=== PATIENT | female | born 1975 | race Caucasian/White ===

== ENCOUNTER 2020-09-04 20:53 | Inpatient (IN) | payer OTHER ==
[~2020-09-04] VITALS: Ht 165.1 cm; Wt 69.4 kg
[2020-09-04] MEDS ORDERED: PANTOPRAZOLE 40 MG/10 ML VIAL INJ IV ONE (21:15)
[2020-09-04] MEDS ORDERED: MORPHINE SULFATE 4 MG/ML SYR/VIAL IV ONE (21:15)
[2020-09-04] MEDS ORDERED: PROCHLORPERAZINE EDISYLATE 5 MG/ML 2ML VIAL IV ONE (21:15)
[2020-09-04] MEDS ORDERED: SODIUM CHLORIDE 0.9% 1,000 ML IVB ONE (21:15)
[2020-09-04 21:56] LABS: Basophils % (auto) 0.4 % (0.0-2.0); Eosinophils # (auto) 0 10 ^3/uL (0-0.8); Monocytes # (auto) 0.9 10 ^3/uL (0-1.3); Neutrophils # (auto) 10.5 10 ^3/uL (1.6-8.6); Nucleated Red Blood Cells % 0.1 %
[2020-09-04 21:58] LABS: Basophils # (auto) 0.1 10 ^3/uL (0-0.2); Hematocrit 47.8 % (36.0-46.0); Lymphocytes # (auto) 0.6 10 ^3/uL (0.4-5.4); Lymphocytes % (auto) 4.8 % (10.0-50.0); Mean Corpuscular Hemoglobin 35.3 pg (28.0-32.0); Mean Corpuscular Hgb Conc. 33.5 g/dL (32.0-36.0); Mean Corpuscular Volume 105.5 fL (80.0-100.0); Monocytes % (auto) 7.4 % (0.0-12.0); Neutrophils % (auto) 87.4 % (37.0-80.0); Red Blood Cells 4.53 10^6/uL (4.0-5.20); Red Cell Distribution Width 14.7 % (11.8-14.3)
[2020-09-04 22:01] LABS: Urine Bacteria NONE SEEN /hpf (None Seen); Urine Blood TRACE /uL (Negative); Urine Hyaline Cast MANY /lpf (0 - 2); Urine Mucus FEW (None Seen); Urine WBC <1 /hpf (0 - 5)
[2020-09-04 22:13] LABS: Albumin 4.6 g/dL (3.4-5.0); Potassium 4.2 mmol/L (3.5-5.1)
[2020-09-04 22:16] LABS: Lactic Acid w/Reflex 7.4 mmol/L (0.4-2.0)
[2020-09-04 22:21] LABS: Total Protein 9.2 g/dL (6.4-8.2)
[2020-09-04 22:22] LABS: BUN/Creatinine Ratio 10.9
[2020-09-04] MEDS ORDERED: SODIUM CHLORIDE 0.9% 1,000 ML IV ONE (22:30)
[2020-09-05] MEDS ORDERED: fentaNYL CITRATE 100 MCG/2 ML VL IV ONE (01:30)
[2020-09-05] MEDS ORDERED: metroNIDAZOLE 500MG/100ML 100 ML IV ONE (01:30)
[2020-09-05] MEDS ORDERED: MORPHINE SULF INJ 2 MG/ML SYRINGE 1ML IV PRN (01:30)
[2020-09-05] MEDS ORDERED: MORPHINE SULFATE 4 MG/ML SYR/VIAL IV PRN (01:30)
[2020-09-05] MEDS ORDERED: NITROGLYCERIN 0.4 MG SL TAB SL PRN (01:30)
[2020-09-05] MEDS: SODIUM CHLORIDE 0.9% 1,000 ML IV SCH ×3 (01:55→21:19)
[2020-09-05] MEDS: cefTRIAXone 1GM/50ML D5W 50 ML IV SCH (01:55)
[2020-09-05] MEDS: ONDANSETRON HCL 4 MG/2 ML VIAL IV PRN ×4 (02:27→21:21)
[2020-09-05 02:56] LABS: Albumin 3.5 g/dL (3.4-5.0); BUN/Creatinine Ratio 14.1; Calcium 6.6 mg/dL (8.5-10.1); Potassium 3.8 mmol/L (3.5-5.1)
[2020-09-05 02:58] LABS: Bilirubin, Total 0.7 mg/dL (0.2-1.0); Total Protein 6.9 g/dL (6.4-8.2)
[2020-09-05] MEDS ORDERED: ZOLP10TA PO (06:43)
[2020-09-05] MEDS ORDERED: HYDR-4798 PO (06:43)
[2020-09-05] MEDS ORDERED: LINA1CAP2 PO (06:43)
[2020-09-05] MEDS ORDERED: CYCL10TA6 PO (06:43)
[2020-09-05] MEDS ORDERED: FAMO20TA10 PO (06:43)
[2020-09-05] MEDS ORDERED: OMEP20TA PO (06:43)
[2020-09-05] MEDS ORDERED: DICY10CA PO (06:43)
[2020-09-05] MEDS ORDERED: PROP60CA34 PO (06:43)
[2020-09-05] MEDS ORDERED: ONDA-144 PO (06:43)
[2020-09-05] MEDS ORDERED: RIZA10TA12 PO (06:43)
[2020-09-05] MEDS ORDERED: BUTACC PO (06:43)
[2020-09-05] MEDS ORDERED: PREG50CA PO (06:43)
[2020-09-05 08:30] VITALS: BP 117/74
[2020-09-05] MEDS ORDERED: ACETAMINOPHEN 325 MG TAB PO PRN ×3 (08:45→20:15)
[2020-09-05 09:00] VITALS: BP 117/74
[2020-09-05] MEDS: metroNIDAZOLE 500MG/100ML 100 ML IV SCH ×2 (09:17→17:30)
[2020-09-05] MEDS ORDERED: PANTOPRAZOLE 40 MG/10 ML VIAL INJ IV SCH (10:00)
[2020-09-05] MEDS ORDERED: SCOP1DIS9 TOP (11:14)
[2020-09-05] MEDS ORDERED: CRAN200C PO (11:14)
[2020-09-05] MEDS ORDERED: MULTCAP45 PO (11:14)
[2020-09-05] MEDS ORDERED: POLY33504 PO (11:14)
[2020-09-05] MEDS ORDERED: METH750T22 PO (11:14)
[2020-09-05 12:22] VITALS: BP 103/63
[2020-09-05] MEDS ORDERED: HYDROmorphone HCL 2 MG/ML VL IV ONE (13:15)
[2020-09-05] MEDS ORDERED: RIZA5TAB35 PO (15:37)
[2020-09-05] MEDS ORDERED: ONDA-180 PO (15:38)
[2020-09-05] MEDS ORDERED: OMEP-263 PO (15:40)
[2020-09-05] MEDS ORDERED: diphenhdrAMINE HCL 50 MG/1 ML VL IV ONE (16:30)
[2020-09-05] MEDS ORDERED: diphenhdrAMINE HCL 50 MG/1 ML VL IM ONE (16:30)
[2020-09-05] MEDS: SUCRALFATE 1 GM/10 ML ORAL SUSP GT SCH ×2 (16:40→21:19)
[2020-09-05 17:08] VITALS: BP 112/86
[2020-09-05] MEDS ORDERED: HYDROcodone-ACET 10/325MG TAB PO PRN (17:15)
[2020-09-05] MEDS: diphenhdrAMINE HCL 50 MG/1 ML VL IV PRN (21:20)
[2020-09-05] MEDS: PANTOPRAZOLE 40 MG/10 ML VIAL INJ IV SCH (21:20)
[2020-09-05] MEDS: HYDROmorphone HCL 2 MG/ML VL IV PRN (21:21)
[2020-09-05 22:23] VITALS: BP 124/93
[2020-09-06] MEDS: metroNIDAZOLE 500MG/100ML 100 ML IV SCH ×3 (01:37→18:43)
[2020-09-06] MEDS: HYDROmorphone HCL 2 MG/ML VL IV PRN ×5 (01:38→23:14)
[2020-09-06] MEDS: ONDANSETRON HCL 4 MG/2 ML VIAL IV PRN ×6 (01:39→22:52)
[2020-09-06] MEDS: diphenhdrAMINE HCL 50 MG/1 ML VL IV PRN ×4 (04:49→23:15)
[2020-09-06 05:30] VITALS: BP 133/87
[2020-09-06] MEDS: SUCRALFATE 1 GM/10 ML ORAL SUSP GT SCH ×4 (05:58→21:28)
[2020-09-06 06:23] LABS: Eosinophils # (auto) 0 10 ^3/uL (0-0.8); Eosinophils % (auto) 0.6 % (0.0-7.0); Lymphocytes # (auto) 1.1 10 ^3/uL (0.4-5.4); Monocytes # (auto) 0.5 10 ^3/uL (0-1.3); Red Blood Cells 3.23 10^6/uL (4.0-5.20); White Blood Cell 5.5 10^3/uL (4.4-10.8)
[2020-09-06 06:25] LABS: Basophils # (auto) 0 10 ^3/uL (0-0.2); Basophils % (auto) 0.7 % (0.0-2.0); Hemoglobin 11.5 g/dL (12.2-16.2); Lymphocytes % (auto) 19.9 % (10.0-50.0); Mean Corpuscular Hemoglobin 35.7 pg (28.0-32.0); Mean Corpuscular Hgb Conc. 34.9 g/dL (32.0-36.0); Mean Corpuscular Volume 102.4 fL (80.0-100.0); Monocytes % (auto) 8.8 % (0.0-12.0); Neutrophils # (auto) 3.8 10 ^3/uL (1.6-8.6); Nucleated Red Blood Cells % 0.1 %; Red Cell Distribution Width 14.8 % (11.8-14.3)
[2020-09-06 07:24] LABS: BUN/Creatinine Ratio 12.2; Bilirubin, Total 0.6 mg/dL (0.2-1.0); Calcium 6.7 mg/dL (8.5-10.1); Total Protein 6.2 g/dL (6.4-8.2)
[2020-09-06 08:08] LABS: Potassium 2.8 mmol/L (3.5-5.1)
[2020-09-06 09:00] VITALS: BP 124/89
[2020-09-06] MEDS ORDERED: POTASSIUM CHL 20 Meq TABLET PO ONE (09:45)
[2020-09-06] MEDS ORDERED: SODIUM BICARBONATE 50ML VIAL 150 ML in D5W 5% 1,000 ML IV ONE (09:45)
[2020-09-06] MEDS ORDERED: POTASSIUM CHLORIDE 60 MEQ, LIDOCAINE 1% (LOCAL ANESTH.) 6 ML in SODIUM CHL 0.9% 500 ML IV ONE (09:45)
[2020-09-06] MEDS: cefTRIAXone 1GM/50ML D5W 50 ML IV SCH (09:56)
[2020-09-06] MEDS: PANTOPRAZOLE 40 MG/10 ML VIAL INJ IV SCH ×2 (09:58→21:28)
[2020-09-06 13:00] VITALS: BP 123/96
[2020-09-06 14:31] LABS: Hepatitis A Ab IgM Negative; Hepatitis B Surface Antigen Negative (Negative); Hepatitis C Antibody Negative (Negative)
[2020-09-06 14:37] LABS: Hepatitis B Core IgM Positive
[2020-09-06 17:34] VITALS: BP 138/94
[2020-09-06 19:03] LABS: BUN/Creatinine Ratio 6.5; Calcium 6.9 mg/dL (8.5-10.1); Potassium 3.2 mmol/L (3.5-5.1)
[2020-09-06 22:00] VITALS: BP 124/87
[2020-09-07] MEDS: metroNIDAZOLE 500MG/100ML 100 ML IV SCH ×3 (02:40→17:45)
[2020-09-07] MEDS: ONDANSETRON HCL 4 MG/2 ML VIAL IV PRN ×4 (04:33→20:43)
[2020-09-07 05:00] VITALS: BP 121/86
[2020-09-07] MEDS: diphenhdrAMINE HCL 50 MG/1 ML VL IV PRN ×4 (05:17→22:58)
[2020-09-07] MEDS: HYDROmorphone HCL 2 MG/ML VL IV PRN ×4 (05:18→22:58)
[2020-09-07] MEDS: SUCRALFATE 1 GM/10 ML ORAL SUSP GT SCH ×4 (06:10→21:45)
[2020-09-07 07:24] LABS: Albumin 3.7 g/dL (3.4-5.0); Calcium 6.9 mg/dL (8.5-10.1); Potassium 3.4 mmol/L (3.5-5.1)
[2020-09-07 07:29] LABS: BUN/Creatinine Ratio 3.8; Bilirubin, Total 0.8 mg/dL (0.2-1.0); Total Protein 7.5 g/dL (6.4-8.2)
[2020-09-07] MEDS: cefTRIAXone 1GM/50ML D5W 50 ML IV SCH (08:50)
[2020-09-07 09:00] VITALS: BP 137/90
[2020-09-07] MEDS: PANTOPRAZOLE 40 MG/10 ML VIAL INJ IV SCH ×2 (09:17→21:45)
[2020-09-07] MEDS ORDERED: D5W/SOD CHL 0.9%/KCL 40MEQ 1,000 ML IV ONE (10:00)
[2020-09-07 12:10] LABS: BUN/Creatinine Ratio 6.3
[2020-09-07 12:16] LABS: Potassium 2.8 mmol/L (3.5-5.1)
[2020-09-07] MEDS ORDERED: POTASSIUM EFFERVESENT TAB 25 MEQ PO ONE (12:30)
[2020-09-07] MEDS ORDERED: D5W/SOD CHLO 0.9% 1,000 ML IV SCH ×2 (12:30→22:00)
[2020-09-07] MEDS ORDERED: POTASSIUM CHLORIDE 40 MEQ, LIDOCAINE 1% (LOCAL ANESTH.) 4 ML in SODIUM CHL 0.9% 250 ML IV ONE (12:30)
[2020-09-07 13:00] VITALS: BP 128/96
[2020-09-07 17:00] VITALS: BP 148/94
[2020-09-07] MEDS ORDERED: MAGNESIUM SULFATE 1GM/100ML 100 ML IV ONE (19:00)
[2020-09-07] MEDS ORDERED: SODIUM PHOSPHATES 40 MEQ in D5W 5% 250 ML IV ONE (19:00)
[2020-09-07] MEDS ORDERED: CALCIUM CHL 100MG/ML 1,000 MG in D5W 5% 100 ML IV ONE (19:00)
[2020-09-07] MEDS ORDERED: D5W/SOD CHLO 0.9% 1,000 ML IV ONE (21:00)
[2020-09-07 22:00] VITALS: BP 124/87
[2020-09-08] MEDS: metroNIDAZOLE 500MG/100ML 100 ML IV SCH ×3 (01:55→18:02)
[2020-09-08] MEDS: ONDANSETRON HCL 4 MG/2 ML VIAL IV PRN ×5 (02:06→20:22)
[2020-09-08 05:00] VITALS: BP 136/94
[2020-09-08] MEDS ORDERED: D5W/SOD CHLO 0.9% 1,000 ML IV SCH (05:30)
[2020-09-08] MEDS: HYDROmorphone HCL 2 MG/ML VL IV PRN ×4 (06:04→20:21)
[2020-09-08] MEDS: diphenhdrAMINE HCL 50 MG/1 ML VL IV PRN ×3 (06:04→20:22)
[2020-09-08] MEDS: SUCRALFATE 1 GM/10 ML ORAL SUSP GT SCH ×4 (06:26→21:59)
[2020-09-08 06:49] LABS: Albumin 3.2 g/dL (3.4-5.0); Calcium 7.2 mg/dL (8.5-10.1)
[2020-09-08 06:57] LABS: BUN/Creatinine Ratio 5.1; Bilirubin, Total 0.6 mg/dL (0.2-1.0); Total Protein 6.5 g/dL (6.4-8.2)
[2020-09-08 07:46] LABS: Potassium 2.8 mmol/L (3.5-5.1)
[2020-09-08] MEDS: PANTOPRAZOLE 40 MG/10 ML VIAL INJ IV SCH ×2 (08:46→21:58)
[2020-09-08 08:50] VITALS: BP 107/71
[2020-09-08] MEDS: cefTRIAXone 1GM/50ML D5W 50 ML IV SCH (09:17)
[2020-09-08 09:33] LABS: Magnesium 2.1 mg/dL (1.6-2.6); Phosphorus 2.1 mg/dL (2.5-4.90)
[2020-09-08 12:56] VITALS: BP 151/80
[2020-09-08] MEDS: D5W/SOD CHL 0.45%/KCL 40MEQ 1,000 ML IV SCH (13:47)
[2020-09-08 17:00] VITALS: BP 123/90
[2020-09-08 22:00] VITALS: BP 98/66
[2020-09-09] MEDS: D5W/SOD CHL 0.45%/KCL 40MEQ 1,000 ML IV SCH ×2 (00:54→13:29)
[2020-09-09] MEDS: ONDANSETRON HCL 4 MG/2 ML VIAL IV PRN ×5 (00:55→17:23)
[2020-09-09] MEDS: HYDROmorphone HCL 2 MG/ML VL IV PRN ×5 (00:55→17:23)
[2020-09-09] MEDS: metroNIDAZOLE 500MG/100ML 100 ML IV SCH ×3 (01:51→18:00)
[2020-09-09] MEDS: diphenhdrAMINE HCL 50 MG/1 ML VL IV PRN ×2 (04:57→13:30)
[2020-09-09] MEDS: SUCRALFATE 1 GM/10 ML ORAL SUSP GT SCH ×3 (06:23→17:23)
[2020-09-09 09:00] VITALS: BP 125/88
[2020-09-09] MEDS: cefTRIAXone 1GM/50ML D5W 50 ML IV SCH (09:11)
[2020-09-09] MEDS: PANTOPRAZOLE 40 MG/10 ML VIAL INJ IV SCH (09:11)
[2020-09-09 09:33] LABS: Eosinophils # (auto) 0.1 10 ^3/uL (0-0.8); Eosinophils % (auto) 1.4 % (0.0-7.0); Lymphocytes # (auto) 0.9 10 ^3/uL (0.4-5.4); Monocytes # (auto) 0.6 10 ^3/uL (0-1.3)
[2020-09-09 09:36] LABS: Basophils # (auto) 0 10 ^3/uL (0-0.2); Basophils % (auto) 0.7 % (0.0-2.0); Hematocrit 37.1 % (36.0-46.0); Hemoglobin 12.9 g/dL (12.2-16.2); Lymphocytes % (auto) 19.1 % (10.0-50.0); Mean Corpuscular Hemoglobin 35.3 pg (28.0-32.0); Mean Corpuscular Hgb Conc. 34.8 g/dL (32.0-36.0); Mean Corpuscular Volume 101.4 fL (80.0-100.0); Monocytes % (auto) 12.1 % (0.0-12.0); Neutrophils # (auto) 3.1 10 ^3/uL (1.6-8.6); Neutrophils % (auto) 66.7 % (37.0-80.0); Nucleated Red Blood Cells % 0.1 %; Red Blood Cells 3.66 10^6/uL (4.0-5.20); Red Cell Distribution Width 15.5 % (11.8-14.3); White Blood Cell 4.6 10^3/uL (4.4-10.8)
[2020-09-09 09:48] LABS: Albumin 3.2 g/dL (3.4-5.0); BUN/Creatinine Ratio 4.1; Calcium 6.7 mg/dL (8.5-10.1)
[2020-09-09 09:51] LABS: Bilirubin, Total 0.4 mg/dL (0.2-1.0); Total Protein 6.2 g/dL (6.4-8.2)
[2020-09-09 09:55] LABS: Potassium 2.9 mmol/L (3.5-5.1)
[2020-09-09] MEDS ORDERED: POTASSIUM CHLORIDE 60 MEQ, LIDOCAINE 1% (LOCAL ANESTH.) 6 ML in SODIUM CHL 0.9% 500 ML IV ONE (10:15)
[2020-09-09 13:00] VITALS: BP 136/92
[2020-09-09 17:00] VITALS: BP 136/91
== END 2020-09-09 20:18 | disposition short-term general hospital (02) | DRG 871 ==
LOC: ER 20:59 → TELE 09-05 01:28 → TELE-EAST 09-05 05:50
PROVIDERS: ADMIT Nurse Practitioner; ATTEND Internal Medicine Nephrology
DX: A41.9 Sepsis, unspecified organism (principal); K85.10 Biliary acute pancreatitis without necrosis or infection; E87.1 Hypo-osmolality and hyponatremia; N17.9 Acute kidney failure, unspecified; E87.6 Hypokalemia; G89.29 Other chronic pain; I10 Essential (primary) hypertension; K21.00 Gastro-esophageal reflux disease with esophagitis, without bleeding; K31.84 Gastroparesis; K76.0 Fatty (change of) liver, not elsewhere classified; K80.20 Calculus of gallbladder without cholecystitis without obstruction; R13.10 Dysphagia, unspecified; R65.20 Severe sepsis without septic shock; M25.562 Pain in left knee; M25.561 Pain in right knee; M54.5 Low back pain; R16.0 Hepatomegaly, not elsewhere classified; Z20.822 Contact with and (suspected) exposure to COVID-19; Z79.891 Long term (current) use of opiate analgesic; Z90.710 Acquired absence of both cervix and uterus
CPT/HCPCS: 36415; 36600; 74176; 76705; 80048; 80053; 80074; 81001; 82150; 82805; 82962; 83036; 83605; 83690; 83735; 84100; 85025; 87040; 87426; 96361; 96365; 96367; 96375; 96376; C9113; G0378; J0696; J2001; J2405; J3490; J7060